=== PATIENT | male | born 1970 | race Caucasian/White ===

== ENCOUNTER 2024-12-02 15:05 | Emergency (ER) | payer SELFPAY ==
[2024-12-02 16:35] VITALS: RESP 18; TEMP 98.8
[2024-12-02 17:25] LABS: Absolute Neutrophil Ct (ANC) 9.06 x10^3/uL (1.78-5.38); BASOPHIL % 0.2 % (0.2-1.2); Basophil (Absolute #) 0.02 x10^3/uL (0.01-0.08); Eosinophil % 0.3 % (0.8-7.0); Eosinophil (Absolute #) 0.03 x10^3/uL (0.04-0.54); Hematocrit 40.9 % (40.1-51.0); Hemoglobin 13.8 g/dL (13.7-17.5); IMMATURE GRAN # 0.04 x10^3u/L (0.001-0.031); IMMATURE GRAN % 0.4 % (0.001-0.429); Lymphocyte (Absolute #) 0.84 x10^3/uL (1.32-3.57); Lymphocytes % 7.5 % (21.8-53.1); Mean Cell Volume 82.6 fL (79.0-92.2); Mean Corpuscular Hemoglobin 27.9 pg (25.7-32.2); Mean Corpuscular Hgb Concent. 33.7 g/dL (32.3-36.5); Monocyte (Absolute #) 1.22 x10^3/uL (0.30-0.82); Monocytes % 10.9 % (5.3-12.2); Neutrophil % 80.7 % (34.0-67.9); Platelet Count 453 x10^3/uL (163-337); Red Blood Count 4.95 x10^6/uL (4.63-6.08); Red Cell Distribution Width 12.1 % (11.6-14.4); White Blood Count 11.2 x10^3/uL (4.23-9.07)
[2024-12-02 17:41] LABS: ANION GAP 14.6 MEQ/L (5-15); BILIRUBIN,TOTAL 0.7 mg/dL (0.2-1.3); Calcium 9.3 mg/dL (8.4-10.2); Creatinine 1 0.61 mg/dL (0.66-1.25); EST GLOMERULAR FILTRATION RATE 115.6 ML/MIN; Potassium 3.5 mmol/L (3.5-5.1); Total Protein 7.4 g/dL (6.3-8.2)
[2024-12-02 17:47] LABS: Erythrocyte Sedimentation Rate 103 mm/hr (0-15)
--- NOTE | 2024-12-02 18:25 | XRAY ---
CLINICAL HISTORY: pain/swelling COMPARISON: none TECHNIQUE: X-fanny of the left ankle was performed in AP lateral and oblique projections. FINDINGS: Small subarticular lucent area in the medial aspect of the talus bone likely represents a small osteochondral injury. Small sclerotic focus in the distal fibular shaft, may be a bone island. Maintained ankle articular relation. Inferior bony calcaneal spur. Focal ossification at the calcaneal insertion of the Achilles tendon. Os trigonum. IMPRESSION: 1. Small subarticular lucent area in the medial aspect of the talus bone likely represents a small osteochondral injury. 2. Inferior bony calcaneal spur. DISCLAIMER:A subtle bone abnormality or fracture may not be readily apparent on x-rays, thus clinical correlation and further imaging including follow up CT, MRI, or follow up x-rays are advised as needed. Electronically Signed by: Galilea Enriquez MD. (12/02/2024 18:20:30 EST)
--- NOTE | 2024-12-02 18:44 | ERPHSYRPT ---
- History of Present Illness Time Seen by Provider: 12/02/24 16:41 Source: patient Exam Limitations: no limitations Patient Subjective Stated Complaint: "Last week, I noticed my left foot hurting really bad and it's been swelling and I can't walk on it. I had to crawl to get to the crutches." Triage Nursing Assessment: Pt presents to ER with complaints of left lower extermity pain, swelling, and redness. Pt has obvious swelling and tenderness to LLE. Pt has limited ROM and is not able to bear weight on extermity. Pt is alert and oriented x 3. Respirations are easy. Pt denies any further complaints. Denies injury. Physician History: 54-year-old male not taking any medications with history of bariatric surgery presented in the ER with left foot and ankle swelling with progressive worsening for the last 5 days. Patient reports he woke up with pain and mild swelling of foot and toes which gradually got worse and now having difficulty weightbearing. Patient reports increased redness around both sides of ankle. He does not remember any trauma or fall. No fever or chills reported. Denies any history of diabetes mellitus. No swelling of calf or thigh but once in a while pain shoots up in the calf from ankle. Hx Tetanus, Diphtheria Vaccination/Date Given: No Hx Influenza Vaccination/Date Given: No Hx Pneumococcal Vaccination/Date Given: No Immunizations Up to Date: No Travel Risk - International Travel Have you traveled outside of the country in past 3 weeks: No - Emerging Infectious Disease Are you exhibiting symptoms associated with any current EIDs: No - Review of Systems Constitutional: No Symptoms Eyes: No Symptoms Ears, Nose, & Throat: No Symptoms Respiratory: No Symptoms Cardiac: No Symptoms Abdominal/Gastrointestinal: No Symptoms Genitourinary Symptoms: No Symptoms Musculoskeletal: Joint Redness, Joint Pain, Joint Swelling Skin: Cellulitis Neurological: No Symptoms Hematologic/Lymphatic: No Symptoms Immunological/Allergic: No Symptoms - Past Medical History Pertinent Past Medical History: Yes Neurological History: No Pertinent History ENT History: No Pertinent History Cardiac History: Hypertension Respiratory History: No Pertinent History Endocrine Medical History: Diabetes Type II Musculoskeletal History: No Pertinent History GI Medical History: No Pertinent History History: No Pertinent History Psycho-Social History: No Pertinent History Male Reproductive Disorders: No Pertinent History - Past Surgical History Past Surgical History: Yes Neuro Surgical History: No Pertinent History Cardiac: No Pertinent History Respiratory: No Pertinent History Gastrointestinal: Other Genitourinary: No Pertinent History Musculoskeletal: Orthopedic Surgery Male Surgical History: No Pertinent History Other Surgical History: bariatric surgery, neck surgery - Social History Smoking Status: Never smoker Exposure to second hand smoke: No Drug Use: none - Social Determinants of Health Will the patient participate in the screening: Yes Do you worry about a steady place to live?: No Do you have any problems with any of the following?: No known problems In the past 12 months,have you had to go without utilities?: No Transportation Issues: No Has anyone in your support network made you feel unsafe?: No Have you or anyone in your house had to go w/o enough food: No - Nursing Vital Signs Nursing Vital Signs: Initial Vital Signs Blood Pressure 181/125 12/02/24 16:15 O2 Sat by Pulse Oximetry 98 12/02/24 16:15 Pain Scale Pain Intensity 9 - Physical Exam General Appearance: no apparent distress Neck Exam: normal inspection, full range of motion Cardiovascular/Respiratory Exam: normal breath sounds, regular rate/rhythm Gastrointestinal/Abdominal Exam: non-tender, no organomegaly Back Exam: normal range of motion Legs Exam: bilateral leg: non-tender, normal inspection, normal range of motion, no evidence of injury Knees Exam: bilateral knee: non-tender, normal inspection, normal range of motion, no evidence of injury Ankle Exam: right ankle: non-tender, normal inspection, normal range of motion, no evidence of injury, left ankle: pain, soft tissue tenderness, swelling (Diffuse erythema around malleoli and calcaneum with some abrasion of right second toe, swelling of second toe moderately and others mild with erythema.) Neuro/Tendon Exam: normal sensation, normal motor functions Mental Status Exam: alert, oriented x 3, cooperative Skin Exam: normal color SpO2 Interpretation: normal SpO2: 97 O2 Delivery: Room Air Ordered Tests: Active Orders 24 hr Category Date Time Status ANKLE (3 VIEWS) Stat Exams 12/02/24 16:55 Completed BLOOD CULTURE Stat Lab 12/02/24 17:18 Received CBC W DIFF Stat Lab 12/02/24 17:12 Completed CMP Stat Lab 12/02/24 17:12 Completed Erythrocyte Sedimentation Rate Stat Lab 12/02/24 17:12 Completed Lactic Acid Stat Lab 12/02/24 17:55 Completed PROCALCITONIN Stat Lab 12/02/24 17:12 Received Uric Acid Stat Lab 12/02/24 17:12 Completed Medication Summary Discontinued Medications Generic Name Dose Route Start Last Admin Trade Name Jan PRN Reason Stop Dose Admin Hydrocodone Bitart/Acetaminophen 2 tab 12/02/24 18:44 12/02/24 19:00 Hydrocodone/Apap 5/325 1 Tab Tablet PO 12/02/24 18:45 2 tab SENT HOME W/ PATIENT ONE Administration Hydrocodone Bitart/Acetaminophen Confirm 12/02/24 18:59 Hydrocodone/Apap 5/325 1 Tab Tablet Administered 12/02/24 19:00 Dose 2 tab .ROUTE .STK-MED ONE Levofloxacin 500 mg 12/02/24 18:34 12/02/24 19:00 Levofloxacin 250 Mg Tab PO 12/02/24 18:35 500 mg STAT ONE Administration Levofloxacin Confirm 12/02/24 18:58 Levofloxacin 250 Mg Tab Administered 12/02/24 18:59 Dose 500 mg .ROUTE .STK-MED ONE Lab/Rad Data: Laboratory Result Diagrams 12/02/24 17:12 12/02/24 17:12 Laboratory Results 12/02/24 12/02/24 12/02/24 Range/Units 17:55 17:12 17:12 WBC (4.23-9.07) x10^3/uL RBC (4.63-6.08) x10^6/uL Hgb (13.7-17.5) g/dL Hct (40.1-51.0) % MCV (79.0-92.2) fL MCH (25.7-32.2) pg MCHC (32.3-36.5) g/dL RDW (11.6-14.4) % Plt Count (163-337) x10^3/uL MPV (9.4-12.4) fL Gran % (34.0-67.9) % Immature Gran % (Auto) (0.001-0.429) % Nucleat RBC Rel Count (0.00-0.2) % Eos # (Auto) (0.04-0.54) x10^3/uL Immature Gran # (Auto) (0.001-0.031) x10^3u/L Absolute Lymphs (auto) (1.32-3.57) x10^3/uL Absolute Monos (auto) (0.30-0.82) x10^3/uL Absolute Nucleated RBC (0.00-0.012) x10^3u/L Lymphocytes % (21.8-53.1) % Monocytes % (5.3-12.2) % Eosinophils % (0.8-7.0) % Basophils % (0.2-1.2) % Absolute Granulocytes (1.78-5.38) x10^3/uL Basophils # (0.01-0.08) x10^3/uL ESR (0-15) mm/hr Sodium 137 (135-145) mmol/L Potassium 3.5 (3.5-5.1) mmol/L Chloride 99 (98-107) mmol/L Carbon Dioxide 26 (22-30) mmol/L Anion Gap 14.6 (5-15) MEQ/L BUN 14 (9-20) mg/dL Creatinine 0.61 L (0.66-1.25) mg/dL Estimated GFR 115.6 ML/MIN Glucose 276 H (74-106) mg/dL Lactic Acid 1.3 (0.4-2.0) Uric Acid 3.1 L (3.5-7.2) mg/dL Calcium 9.3 (8.4-10.2) mg/dL Total Bilirubin 0.70 (0.2-1.3) mg/dL AST 23 (17-59) U/L ALT 26 (0-50) U/L Alkaline Phosphatase 107 (38-126) U/L Serum Total Protein 7.4 (6.3-8.2) g/dL Albumin 4.0 (3.5-5.0) g/dL 12/02/24 Range/Units 17:12 WBC 11.2 H (4.23-9.07) x10^3/uL RBC 4.95 (4.63-6.08) x10^6/uL Hgb 13.8 (13.7-17.5) g/dL Hct 40.9 (40.1-51.0) % MCV 82.6 (79.0-92.2) fL MCH 27.9 (25.7-32.2) pg MCHC 33.7 (32.3-36.5) g/dL RDW 12.1 (11.6-14.4) % Plt Count 453 H (163-337) x10^3/uL MPV 9.0 L (9.4-12.4) fL Gran % 80.7 H (34.0-67.9) % Immature Gran % (Auto) 0.4 (0.001-0.429) % Nucleat RBC Rel Count 0.0 (0.00-0.2) % Eos # (Auto) 0.03 L (0.04-0.54) x10^3/uL Immature Gran # (Auto) 0.04 H (0.001-0.031) x10^3u/L Absolute Lymphs (auto) 0.84 L (1.32-3.57) x10^3/uL Absolute Monos (auto) 1.22 H (0.30-0.82) x10^3/uL Absolute Nucleated RBC 0.00 (0.00-0.012) x10^3u/L Lymphocytes % 7.5 L (21.8-53.1) % Monocytes % 10.9 (5.3-12.2) % Eosinophils % 0.3 L (0.8-7.0) % Basophils % 0.2 (0.2-1.2) % Absolute Granulocytes 9.06 H (1.78-5.38) x10^3/uL Basophils # 0.02 (0.01-0.08) x10^3/uL ESR 103 H (0-15) mm/hr Sodium (135-145) mmol/L Potassium (3.5-5.1) mmol/L Chloride (98-107) mmol/L Carbon Dioxide (22-30) mmol/L Anion Gap (5-15) MEQ/L BUN (9-20) mg/dL Creatinine (0.66-1.25) mg/dL Estimated GFR ML/MIN Glucose (74-106) mg/dL Lactic Acid (0.4-2.0) Uric Acid (3.5-7.2) mg/dL Calcium (8.4-10.2) mg/dL Total Bilirubin (0.2-1.3) mg/dL AST (17-59) U/L ALT (0-50) U/L Alkaline Phosphatase (38-126) U/L Serum Total Protein (6.3-8.2) g/dL Albumin (3.5-5.0) g/dL - Progress Progress: unchanged Progress Note: 12/02/24 18:35 54-year-old is evaluated in the ER for left foot and ankle pain/swelling and redness. Difficulty weightbearing. He is offered pain medication which he declined. X-rays ankle are negative for fracture dislocation. Patient more redness and tenderness is around the ankle area. No calf tenderness. Workup showed white count of 11, chemistries fairly unremarkable. Normal lactate and uric acid. With progressive worsening of cellulitis/swelling in foot and ankle area, I recommended IV antibiotics and admission with podiatry consultation as this could be foot and ankle cellulitis versus septic joint which though seems less likely but more of a secondary to trauma in the second toe causing cellulitis of the foot and ankle, but patient does not want to stay in the hospital at all and he wants to leave immediately because of some stuff he has to take care of at home. He does understand the risk of going home and worsening of condition but still wants to leave. Patient is not confused or altered at all. I have shared patient presentation, x-rays and lab work with Dr. Vega, recommended starting on Levaquin, given pain medications as needed and patient agrees to follow-up with podiatry in the morning. I have also given him long walking boot to better stabilize his foot and ankle. Discussed signs symptoms of worsening needing return to ER which he seems understanding. Complexity of problem addressed: Acute moderate to high Complexity of data reviewed analyzed: Moderate Risk of complication/morbidity/mortality of condition: High risk Discussed with Dr.: Mathieu Will see patient in: office Counseled pt/family regarding: lab results, diagnosis, need for follow-up, rad results Medical Desision Making - Discussion of managment Care discussed with:: specialist (Podiatry Dr. Vega) Reviewed:: Test results Agreed on:: Treatment plan, need for follow-up Will see patient: In office - Diagnostic Testing Diagnostic test were ordered, analyzed, and reviewed by me: Yes Radiological Interpretation: Interpreted by me, Reviewed by me, Teleradiologist Report - Risk of complications The pt has a mod risk of morbidity or mortality based on: Need for prescription drug management - Departure Departure Disposition: Home Clinical Impression: Cellulitis of ankle, Cellulitis of foot Condition: Stable Critical Care Time: No Referrals: DOCTOR,NO FAMILY [Primary Care Provider] - Follow up/PCP as directed Gianfranco Moncada MD [NON-STAFF PHY W/O PRIVILEGES] - Follow up/PCP as directed (Tomorrow morning between 8 and 10 AM for reevaluation) Instructions: Cellulitis (skin infection) in adults - Discharge instructions Additional Instructions: Take Tylenol/ibuprofen as needed. Weightbearing as tolerated. Follow-up with podiatry for reevaluation in the morning. Return to ER for worsening pain swelling redness or if develop fever chills etc. Prescriptions: Hydrocodone/Acetaminophen [Hydrocodone-Acetamin 5-325 mg] 1 tab PO Q6HPRN PRN 3 Days #12 tablet MDD 4 PRN Reason: Pain Ibuprofen 600 mg PO Q6HPRN PRN 10 Days #20 tablet PRN Reason: Pain Levofloxacin [Levaquin 500 MG Tablet] 500 mg PO DAILY #7 tablet
[2024-12-02] MEDS ORDERED: Levofloxacin 250MG Tablet ONE (18:58)
[2024-12-02] MEDS ORDERED: NORCO 5/325 MG ONE (18:59)
[2024-12-02] MEDS: NORCO 5/325 MG PO ONE (19:00)
[2024-12-02] MEDS: Levofloxacin 250MG Tablet PO ONE (19:00)
[2024-12-02 19:24] VITALS: BP 182/132; PULSE 69
[2024-12-02 19:26] VITALS: O2SAT 97
== END 2024-12-02 19:10 | disposition home or self-care (01) ==
LOC: ED 15:05
DX: L03.116 Cellulitis of left lower limb (principal); M25.572 Pain in left ankle and joints of left foot; M79.89 Other specified soft tissue disorders; I10 Essential (primary) hypertension; E11.9 Type 2 diabetes mellitus without complications; Z79.891 Long term (current) use of opiate analgesic; Z79.899 Other long term (current) drug therapy
CPT/HCPCS: 36415; 73610; 80053; 83605; 84145; 84550; 85025; 85652; 87040; 99283; 99284; L4386; A9270-GY